=== PATIENT | female | born 1975 | race Caucasian/White ===

== ENCOUNTER 2024-03-14 20:07 | Emergency (ER) | payer OTHER ==
[~2024-03-14] VITALS: Ht 162.5 cm; Wt 111.1 kg
[~2024-03-14 20:07] MED LIST: NKHM
[2024-03-14] MEDS ORDERED: CYCLOBENZAPRINE5 M3 PO (21:10)
[2024-03-14] MEDS ORDERED: Cyclobenzaprine Hydrochlorid 10 MG TAB PO ONE (21:15)
== END 2024-03-14 21:23 | disposition home or self-care (01) ==
LOC: ED 20:07
DX: S86.911A Strain of unspecified muscle(s) and tendon(s) at lower leg level, right leg, initial encounter (principal); X50.0XXA Overexertion from strenuous movement or load, initial encounter; Y93.89 Activity, other specified; Y92.89 Other specified places as the place of occurrence of the external cause; Y99.8 Other external cause status